=== PATIENT | male | born 1935 | race Caucasian/White ===

== ENCOUNTER → 2018-03-14 | Outpatient (CLI) | payer MEDICARE, BC ==
[~2018-03-14] MED LIST: ALBU90OI INH; Aspir 8181 MG PO; BETA.25.45 OU; BRIM.15SO OU; DIGO.125 PO; DILT120 PO; DOCU100 PO; DORZOPSO; DULERA 100 MCG/13 GM INH; FURO40 PO; METO50ER PO; POTA10T PO; TRAV.004OP OU
== END | disposition home or self-care (01) ==
LOC: LAB SHORT 07:50 → PLD 07:50
DX: C44.42 Squamous cell carcinoma of skin of scalp and neck (principal); D04.4 Carcinoma in situ of skin of scalp and neck
CPT/HCPCS: 88305

== ENCOUNTER 2018-10-19 06:04 | Emergency (ER) | payer MEDICARE, BC ==
[~2018-10-19] VITALS: Ht 167.6 cm; Wt 97.5 kg
[2018-10-19] MEDS ORDERED: Ultram50 MG PO (07:43)
== END 2018-10-19 08:00 | disposition home or self-care (01) ==
LOC: ER 06:04
DX: S39.012A Strain of muscle, fascia and tendon of lower back, initial encounter (principal); W18.30XA Fall on same level, unspecified, initial encounter; J44.9 Chronic obstructive pulmonary disease, unspecified; I48.91 Unspecified atrial fibrillation; Z87.891 Personal history of nicotine dependence
CPT/HCPCS: 72100; 99283-25

== ENCOUNTER → 2021-01-01 | Outpatient (CLI) | payer MEDICARE, BC ==
[~2021-01-01] MED LIST changes: +Ultram50 MG PO
== END ==
LOC: LAB SHORT 12:04 → LAB 12:04
DX: D48.5 Neoplasm of uncertain behavior of skin (principal); Q82.5 Congenital non-neoplastic nevus; D22.5 Melanocytic nevi of trunk; Z88.0 Allergy status to penicillin; Z88.1 Allergy status to other antibiotic agents; Z88.8 Allergy status to other drugs, medicaments and biological substances; Z91.038 Other insect allergy status
CPT/HCPCS: 88305

== ENCOUNTER 2022-01-12 22:45 | Inpatient (IN) | payer MEDICARE, BC ==
[~2022-01-12] VITALS: Ht 165.1 cm; Wt 91.0 kg
[2022-01-13 04:28] LABS: BASOPHILS ABSOLUTE AUTO 0.01 K/mm3 (0.00-0.23); BASOPHILS PERCENT AUTO 0 % (0-2); EOSINOPHILS ABSOLUTE AUTO 0.01 K/mm3 (0.00-0.68); EOSINOPHILS PERCENT AUTO 0 % (0-6); Hematocrit 44.9 % (37.0-53.0); Hemoglobin 15.6 g/dL (13.5-17.5); IMMATURE GRAN PERCENT AUTO 1 % (0-1); LYMPHOCYTES ABSOLUTE AUTO 1.42 K/mm3 (0.84-5.20); LYMPHOCYTES PERCENT AUTO 14 % (21-46); MONOCYTES ABSOLUTE AUTO 1.07 K/mm3 (0.16-1.47); MONOCYTES PERCENT AUTO 10 % (4-13); Mean Corpuscular HGB 30.6 pg (26.0-34.0); Mean Corpuscular HGB Conc 34.7 g/dL (31.5-36.5); Mean Corpuscular Volume 88 fL (80-100); Mean Platelet Volume 9.1 fL (9.1-12.4); NEUTROPHILS ABSOLUTE AUTO 7.86 K/mm3 (1.96-9.15); NEUTROPHILS PERCENT AUTO 75 % (41-73); Platelet Count 204 K/mm3 (150-400); RDW Coefficient Variation 12.2 % (11.7-14.2); RDW Standard Deviation 39.5 fL (35.1-46.3); Red Blood Cell Count 5.09 M/mm3 (4.30-5.90); White Blood Cell Count 10.47 K/mm3 (4.00-11.30)
[2022-01-13 04:48] LABS: Calcium, Blood 7.6 mg/dL (8.5-10.1); Creatinine, Blood 0.27 mg/dL (0.60-1.20); Potassium, Blood 3.9 mmol/L (3.5-5.5)
[2022-01-13] MEDS ORDERED: Norco 5-325 Ta1 EACH PO (05:49)
--- NOTE | 2022-01-13 12:50 | NUR ---
Pt states that he fell at home after he tripped. He says that he lives with his and son. Son lives in a trailer on their property in [place]. The pt states he is starting to see why older folks usually move into town. He says it is getting to be too much for he and his to live out in the country. States that there is risk of wildfires in the summer and too much work in the winter.
[2022-01-13 13:19] LABS: Influenza A, PCR NEGATIVE (NEGATIVE); Influenza B, PCR NEGATIVE (NEGATIVE); Resp Syncytial Virus, PCR NEGATIVE (NEGATIVE)
[2022-01-13 13:23] LABS: SARS-Cov-2 (COVID-19) PCR, MMC POSITIVE (NEGATIVE)
--- NOTE | 2022-01-13 13:30 | NUR ---
Pt's called to talk with the patient. I asked her if the pt is normally confused/forgetful at home, and she said that that is normal for him. She said that they have not been tested for Covid, but have been ill at home, and she presumed that it was covid. Both she and her have been ill, she said. I asked her to review the pt's medications with me over the phone, but she said that she did not have the list in front of her and could not do it at the time, but that she would call back later to review it with me.
--- NOTE | 2022-01-13 14:15 | NUR ---
Coughing up yellow thick sputum. Call to provider Mika to report positive covid results, and clarify continuous IVF order. the pt was not requiring oxygen after the initial settling in to PCU room 17; however, at this time spo2 is 87-88% on room air, even after the pt was deep breathing and coughing. He is in no distress. Given 3 l/min of oxygen gradually starting at 1 l/min and his spo2 improved to 90%.
--- NOTE | 2022-01-13 16:01 | NUR ---
Pt had pulled off his oxygen, his pulse oximetry, cardiac cath lab manager wires and pulled out his IV. He is redirectable, but forgets quickly where he is and what things are around him. His spoke with me on the phone and says that he normally is confused and very forgetful. Powerglide placed right upper arm without difficulty. Pt is cooperative and pleasantly conversant; however, conversation is difficult due to his hearing loss and he says that his hearing aid batteries need replacing. He also has some vision loss he states, and this is evident also in conversation with him. He mistook the Geriwalker for a rocking chair. Bed alarm is on. NS infusing now via powerglide midline IV. The pt is on 3 l/min of oxygen and spo2 92-96%. He is napping when not involved in conversation or during patient care.
[2022-01-13 17:09] LABS: Hematocrit 45.1 % (37.0-53.0); Hemoglobin 16.2 g/dL (13.5-17.5)
--- NOTE | 2022-01-13 17:25 | NUR ---
Pt has had several attempts to void but has been unsuccessful. Voided only miniscule amounts. Bladder scan showed greater than [address] Gatica to report pt's need for supplemental oxygen as well as bladder scan results. New order received.
--- NOTE | 2022-01-13 17:29 | NUR ---
sling placed on the right arm for comfort per Dr. Campbell.
--- NOTE | 2022-01-13 17:45 | NUR ---
Assisted the pt to sit up in bed to eat dinner. Earlier attempts to help him to stand to use the urinal were not successful as he was too weak to stand, and additionally his right arm is immobilized in sling due to the fracture.
[2022-01-13 17:51] LABS: Source, Urine Foley catheter
[2022-01-13 17:55] LABS: Appearance, Urine Clear (Clear); Bilirubin, Urine Neg (Neg); Blood, Urine 1+ (Neg); Color, Urine Yellow (P-Yellow); Glucose Qualitative, Urine 2+ (Neg); Ketones, Urine 4+ (Neg); Leukocyte Esterase, Urine Neg (Neg); Nitrite, Urine Neg (Neg); Protein, Urine 1+ (Neg); Urobilinogen, Urine 2+ (Normal); pH, Urine 6.5 (5.0-8.0)
--- NOTE | 2022-01-13 18:29 | NUR ---
The pt ate about half of his dinner while sitting up in bed. He is cheerful, pleasant, and redirectable. He has required careful monitoring as he often forgets what items are and pulls his oxygen off of his nose. removes the continuous oxymetry sticker, attempts to pull out his IV, and pulls his hearing aids out. Requested pt room with remote camera montoring for patient safety. Bed alarm is on. Room door has to remain closed due to pt's positive covid status.
--- NOTE | 2022-01-13 18:35 | NUR ---
The pt does not keep the sling in place. He states that he is not having any pain.
[2022-01-13 18:53] LABS: Bacteria Few /hpf; Red Blood Cells, Urine 0-2 /hpf (0-2); Squamous Epithelial Cells Rare /hpf (Few); White Blood Cells, Urine 0-2 /hpf (0-5)
[2022-01-14 04:58] LABS: Hemoglobin 13.5 g/dL (13.5-17.5); Mean Corpuscular HGB 31.1 pg (26.0-34.0); Mean Corpuscular HGB Conc 34.6 g/dL (31.5-36.5); Mean Corpuscular Volume 90 fL (80-100); Mean Platelet Volume 9.1 fL (9.1-12.4); Platelet Count 187 K/mm3 (150-400); RDW Coefficient Variation 12.2 % (11.7-14.2); RDW Standard Deviation 40.2 fL (35.1-46.3); Red Blood Cell Count 4.34 M/mm3 (4.30-5.90); White Blood Cell Count 11.06 K/mm3 (4.00-11.30)
[2022-01-14 05:26] LABS: Calcium, Blood 6.9 mg/dL (8.5-10.1); Creatinine, Blood 0.25 mg/dL (0.60-1.20); Potassium, Blood 2.7 mmol/L (3.5-5.5)
--- NOTE | 2022-01-14 05:52 | NUR ---
SHIFT SUMMARY PT ALERT. CONFUSED, FORGETFUL, AND HARD OF HEARING. STATES HE OCCASIONALLY SEES HALLUCINATIONS. NO TELE. AFEBRILE. BP STABLE. ON 4L SATS OVER 90%. SPENT HALF OF EVENING IN BED, AWAKE AND RESTLESS. REST OF NIGHT IN CHAIR SLEEPING. LUNG SOUNDS MOIST. CEDILLO IN PLACE DRAINING YELLOW URINE TO GRAVITY. CALL ALARM AT SIDE, WILL CONTINUE TO MONITOR UNTIL REPORT GIVEN TO DAYSHIFT RN
--- NOTE | 2022-01-14 07:16 | NUR ---
Call to Dr. Ramos regarding the low potassium level noted on labs this morning. States that he will order some replacement.
--- NOTE | 2022-01-14 08:00 | NUR ---
Pt is confused. Does not know where he is. Oriented to person, and following directions, but his conversation is more confused than yesterday. He awakens for oral medications and some breakfast, but requires frequent cues, and is having difficulty staying awake when not engaged in conversation or activity. Was wearing oxygen at 4 l/min with spo2 96% while sleeping; This was decreased to 2 l/min, but with activity of eating and taking meds spo2 dropped to 85% on this. He is now at 3 l/min and maintaining 88-90% spo2 while eating. He is sitting up in the recliner, leaning to the left. Complained of his back hurting, but denies any pain in the right shoulder/clavicular area at this time. Bruising noted advanced since yesterday evening, but no increase in the swelling nor size of the hematoma.
--- NOTE | 2022-01-14 08:59 | NUR ---
Pt was assisted up to bedside commode to have BM. He is a 2 person moderate assist with gait belt and geriwalker. Still having some confusion, but he is directable and able to track with some ongoing activity. Required 4 l/min of oxygen for the activity, reduced back down to 3 l/min afterwards when at rest. Denture care completed, but he did not want the upper dentures back in his mouth. Lower teeth are his own, he says. Sitting in recliner chair. Contreras draining clear yellow urine. IV NS infusing concurrently with KCL rider at this time, into powerglide in the right upper arm.
--- NOTE | 2022-01-14 09:38 | NUR ---
NS and KCL first rider still infusing, concurrently. Pt is dozing in the recliner chair. RT Stanley Fu reports to me that the pt was unable to follow directions to administer the inhaler scheduled this morning. STates it appears that either the pt is unfamiliar with the method, or more confused than usual and unable to use it in an effective way.
--- NOTE | 2022-01-14 10:05 | NUR ---
Assisted pt to BSC and then to bed. He says that he is exhausted. Dr. Ramos rounded on the pt during the transfer to bed. Pt is on 3 l/min of oxygen, spo2 90-91% at this time.
--- NOTE | 2022-01-14 13:09 | NUR ---
Pt is napping in between care. He often pulls at lines/tubes. Prevented from pulling out his Midline IV catheter by TROLLEY CAR OPERATOR intervention about an hour ago. Able to wean his oxygen down to 1 l/min delivery; he is sleeping now on his left side. Frequent moist, productive cough with yellow sputum. Line draw at this time from the Midline IV. Declined eating lunch; states that he just wants to sleep. Attempted to call family at phone number listed for and son; no answer, and no voice mail available.
[2022-01-14] MEDS ORDERED: TIMO.5OPSO BOTHEYES (14:53)
--- NOTE | 2022-01-14 15:25 | NUR ---
Assisted to bedside commode, said that he had to have a BM. Unable to have a BM, passing gas. STates he takes prune juice. Miralax and senokot are being given as ordered, and we will also give him some prune juice. Assisted to the recliner chair for dinner. His son Godwin was here visiting the last hour, brought the pt's hearing aid batteries and glasses. I updated the family on the pt's condition and plan of care.
[2022-01-14] MEDS ORDERED: TRAVOPROST2.5 ML BOTHEYES (16:07)
--- NOTE | 2022-01-14 17:46 | NUR ---
The pt said that he had had a BM. He asked if this was the chair with the hole in the middle (BSC). It was not. Pt assisted with gait belt to stand up and hold on to geriwalker while pericare was done and clean attends placed on the pt. Meal set up was then done and pt is continuing to sit in the recliner to eat dinner.
[2022-01-15 04:39] LABS: Bun/Creatinine Ratio 12.1 (12.0-20.0); Calcium, Blood 8.3 mg/dL (8.5-10.1); Creatinine, Blood 0.33 mg/dL (0.60-1.20); Magnesium, Blood 1.8 mg/dL (1.6-2.4)
--- NOTE | 2022-01-15 06:02 | NUR ---
SHIFT SUMMARY PT ALERT. MENTATION CHANGES THROUGHOUT THE NIGHT, MORE CONFUSED WHEN WAKING UP FROM SLEEP.AFEBRILE. HR SR 80'S. ON 1-3L NC SATS OVER 89%. BP STABLE. IN CHAIR MOST OF EVENING. CEDILLO IN PLACE DRAINING TO GRAVITY. NO C/O PAIN OR DISCOMFORT. NS INFUSING IN MONSTER PG. PG DRAWS BLOOD. IN AND OUT OF SLEEP THROUGHOUT THE EVENING. IN CHAIR WITH CALL ALARM AT SIDE, WILL CONTINUE TO MONITOR UNTIL REPORT GIVEN TO DAYSHIFT RN
--- NOTE | 2022-01-15 08:17 | NUR ---
Pt is alert, oriented to person, place, family, and ongoing events. He is able to recall events from last night, his admission, and is talking about having conversation with his son and to possibly sell their property and move into town, as he is realizing that it is too much for them to keep up. He is eating breakfast. Leaning to the left side, because he says that he is having pain from his right hip and lower back. States chronic. Declined pain medication, states that it gives him hallucinations.
--- NOTE | 2022-01-15 08:46 | NUR ---
Pt was given warm damp cloth to wash his face and hands. Upper dentures were cleaned for him. Combed his hair. He says that he is done with breakfast, but might need to poop a little bit later. Call light attached to his table within reachTerrell Tolbert with physical therapy here to see the patient.
--- NOTE | 2022-01-15 10:27 | NUR ---
The pt has been oriented, and appropriate in conversation, recalling ongling events and making personal plans, and communicating about them with staff. Using call light appropriately. No drowsiness noted. He asked me to call his . He talked to her earlier on the phone, and she asked him to call his eye doctor. He tells me that he forgot to tell her that he isn't really set up here to call the eye doctor and as it isn't urgent, he would like his to call the eye doctor. PT requested assistance up to the bedside commode at this time. Oxygen delivery increased to 4 l/min during the activity; he was able to stand, stooped over on the geriwalker, and transfer to the commode. Call light in reach; he said that he will call when he is done.
--- NOTE | 2022-01-15 11:07 | NUR ---
Assist from commode back to recliner chair. States unable to have a BM.
--- NOTE | 2022-01-15 13:56 | NUR ---
Repositioned the pt slightly in the recliner chair. He does not want to get into the bed. Wearing 1 l/min of oxygen, spO2 91-93%. Says that he has no other needs at this time.
--- NOTE | 2022-01-15 17:33 | NUR ---
Following report given by telephone to DOMINGO Carrasco, the pt was transferred to room 346 by recliner chair. The pt is on continuous oximetry monitoring and wearing 1 l/min of oxygen delivery by nasal cannula.
--- NOTE | 2022-01-15 17:53 | NUR ---
PATIENT IS EATING DINNER AT THIS TIME. UP IN THE RECLINER. ON 1L O2 VIA NC WITH O2 SATURATION OF 93%. REPOSITIONED WITH PILLOWS. WILL CONTINUE TO MONITOR
--- NOTE | 2022-01-16 05:40 | NUR ---
SHIFT SUMMARY AOX4-SELF, PLACE, FOLLOWING DIRECTIONS, SITUATION @BEGINNING OF SHIFT. [place]. THIS AM PT MORE DROWSY & CONFUSED. ASKS "WHERE ARE WE? WHAT STATE ARE WE IN? WHAT ARE YOU DOING HERE?" AND REMOVED NC TUBE OFF MULTIPLE TIMES. DENIES ANY PAIN @ R CLAVICLE FX. COVID +. 2-4L O2 VIA NC DEPENDING ON EXERTION, PT CURRENTLY ON 3L O2 SINCE PT KEPT DESATING TO 80% R/T PULLING NC OFF. OCC NONPRODUCTIVE COUGH. LS DIM T/O. LABOURED BREATHING c ACTIVITY. OTHERWISE VSS. 2 ASSIST c FWW & GB, DAMARIS/LEANS FORWARD c TRANSFERS. CEDILLO PATENT & DRAINING DARK ORANGE URINE. CALL LIGHT & BED ALARM IN PLACE.
[2022-01-16 05:52] LABS: Bun/Creatinine Ratio 16.1 (12.0-20.0); Calcium, Blood 8.5 mg/dL (8.5-10.1); Creatinine, Blood 0.31 mg/dL (0.60-1.20); Potassium, Blood 3.7 mmol/L (3.5-5.5)
--- NOTE | 2022-01-16 17:20 | NUR ---
PATIENT IS ALERT AND ORIENTED SELF, FAMILY AND PLACE. CONFUSED WHEN AWAKENED FROM SLEEP. HE HAS BEEN UP IN THE RECLINER MOST OF THIS SHIFT. ON 5L O2 VIA NC AT THIS TIME WITH AND OXYGEN SATURATION OF 93%. PATIENT DOES PULL OFF HIS OXYGEN WHILE ASLEEP. UPDATE GIVEN TO THE PATIENT'S . PATIENT WAS ABLE TO TALK TO HIS OVER THE PHONE. NO C/O PAIN. PATIENT SHOWERED WITH ASSISTANCE THIS MORNING
--- NOTE | 2022-01-17 05:27 | NUR ---
SHIFT SUMMARY NO ACUTE CHANGE THIS SHIFT. MORE ORIENTED THEN PREVIOUS NIGHT. AOX3-4, MAYBE A LITTLE FORGETFUL. ABLE TO FOLLOW DIRECTIONS. VSS. DENIES PAIN, N/V. REPORTS FEELING DYSPNIC. COVID +. ABLE TO TITRATE O2 DOWN TO 2.5L O2. LS DIM & COARSE T/O. E/U RESP. CALL LIGHT IN REACH & BED ALARM IN PLACE. WILL MONITOR.
[2022-01-17 06:01] LABS: Bun/Creatinine Ratio 22.3 (12.0-20.0); Calcium, Blood 8.6 mg/dL (8.5-10.1); Creatinine, Blood 0.31 mg/dL (0.60-1.20); Potassium, Blood 3.9 mmol/L (3.5-5.5)
--- NOTE | 2022-01-17 18:15 | NUR ---
PATIENT PAM CONTINUES TO DESAT DURING ANY ACTIVITY, EVEN TALKING ON THE PHONE. HE IS AT 3 LNC. PATIENT APPEARS TO BE ALERT, BUT QUICKLY DOSES OFF WITH EYES HALF OPEN. HIS LUNGS SOUND CONGESTED. APPETITE DECREASED. LABS ARE OFF A LITTLE, WITH LOW SODUIM, CHLORIDE, BUN, CREATININE. PATIENT HAD COMPANY TODAY, AND FAMILY WERE HERE. THIS AFTERNOON, URINE APPEARED STRAWBERRY IN THE CEDILLO FOR A BRIEF TIME, WE ARE OBSERVING THIS STILL AT THIS POINT TO SEE WHAT MAY OCCUR.
--- NOTE | 2022-01-18 05:09 | NUR ---
SHIFT SUMMARY AOX1-SELF & FOLLOWING DIRECTIONS. APPEARED MORE CONFUSED THEN PREVIOUS NIGHT, REPORTED HE WAS IN "[place]" AND ASKED WHO I WAS. REPORTED 4/10 PAIN IN R SHOULDER, MEDICATED 1X c TYLENOL. DENIES N/V. REPORTS FEELING DYSPNIC. SPO2 >90% ON 4L O2, PT FREQUENTLY REMOVES NC & DESATS TO 84-88% ON RA. REST OF VSS. LS DIM c CRACKLES IN BASES. E/U RESP. CEDILLO DRAINING BRIGHT ORANGE URINE. CALL LIGHT & BED ALARM IN PLACE FOR SAFETY.
[2022-01-18 09:50] LABS: Bun/Creatinine Ratio 30.9 (12.0-20.0); Calcium, Blood 8.9 mg/dL (8.5-10.1); Creatinine, Blood 0.29 mg/dL (0.60-1.20); Potassium, Blood 3.8 mmol/L (3.5-5.5)
--- NOTE | 2022-01-18 16:56 | NUR ---
SHIFT SUMMARY PT AxOx2-3. PLEASANT AND COOPERATIVE WITH CARE. PT WORKED WITH PHYSICAL THERAPY THIS SHIFT. UP IN CHAIR FOR APPROX 4 HOURS TODAY. PT DENIES DYSPNEA OR PAIN. PT BREATHING WITHOUT DIFFICULTY ON 3L O2 VIA NC. PT DESATS BELOW 88% WITH ACTIVITY OR ACCIDENTAL REMOVAL OF O2. PT HAS POOR APPETITE THIS SHIFT. VITALS REVIEWED. PT CURRENTLY RESTING IN BED WITH CALL LIGHT IN REACH.
--- NOTE | 2022-01-19 01:30 | NUR ---
INCREASED O2 NEEDS SINCE BEGINNING OF SHIFT PT HAS BEEN VERY CONFUSED, AOX1-SELF, REMOVING NC WHICH HAS CAUSED SPO2 TO DROP TO 80-88% ON RA. FREQUENTLY IN ROOM REPLACING NC BACK ON PT OR REPLACING CONT BIOX SENSOR. PT SATS WERE RECOOPERATING FINE ON 5L O2 UNTIL ROUGHLY 0030 WHEN SPO2 MAINTAINED 68-72% ON 5L O2. CALLED RT FOR HF NC. PT NOW SATING 90-94% ON 8L O2 HF NC & TURNED 1/2 ON SIDE & ABD, MOSTLY PRONED. HIS BREATH SOUNDS ARE COARSE T/O AND PT HAS WET GURGLY SOUND IN BACK OF THROAT, ENCOURAGED PT TO COUGH. VERY WEAK COUGH, NO SPUTUM PRODUCTION. WILL CONT TO MONITOR.
[2022-01-19 05:50] LABS: Bun/Creatinine Ratio 29.7 (12.0-20.0); Calcium, Blood 9.1 mg/dL (8.5-10.1); Creatinine, Blood 0.3 mg/dL (0.60-1.20)
--- NOTE | 2022-01-19 06:30 | NUR ---
SHIFT SUMMARY PT HAS BEEN CONFUSED T/O NIGHT, AOX1-SELF ONLY. HAS STARTED SPEAKING NONSENSICAL & HAVING NONSENSICAL RESPONSES TO QUESTIONS. UNABLE TO FOLLOW DIRECTIONS WELL. FREQUENTLY PULLING OFF NC & CONT PULSE OX. PT IS REQUIRING MORE O2 TO MAINTAIN SPO2, CURRENTLY ON 6L HF NC HAS REQUIRED UP TO 8L HF O2 TONIGHT. AROUND 0600 THIS AM CONT PULSE OX STATES HR 130-146, INFORMED DR MCDOWELL, SHE PLACED PT ON TELE. TELE REPORTED AFIB HR SUSTAINING 130-140'S. CALLED DR MCDOWELL BACK & INFORMED HER OF THE CHANGES PT HAS HAD OVER THE COURSE OF 4 DAYS MIAH PROVIDED CARE TO HIM & SHE ORDERED IV METOPROLOL & CHEST XRAY. BP STABLE. AFEBRILE. CEDILLO PATENT & DRAINING ORANGE URINE. WILL CONT TO MONITOR PT UNTIL DAY NURSE ASSUMES CARE.
[2022-01-19 07:05] LABS: Base Excess Venous 8.2 mmol/L; Bicarbonate Venous 29.3 mmol/L (24.0-30.0); PCO2 Venous 54.9 mmHg (38-42); pH Blood Venous 7.39 (7.34-7.37)
[2022-01-19 12:05] LABS: Hematocrit 44.1 % (37.0-53.0); Hemoglobin 15.3 g/dL (13.5-17.5); Mean Corpuscular HGB 31.2 pg (26.0-34.0); Mean Corpuscular HGB Conc 34.7 g/dL (31.5-36.5); Mean Corpuscular Volume 90 fL (80-100); Mean Platelet Volume 9.1 fL (9.1-12.4); Platelet Count 402 K/mm3 (150-400); RDW Coefficient Variation 11.9 % (11.7-14.2); RDW Standard Deviation 39.5 fL (35.1-46.3); White Blood Cell Count 20.06 K/mm3 (4.00-11.30)
--- NOTE | 2022-01-19 14:35 | NUR ---
SPOKE TO DR RE INC H/R, BRUISING, LOWER SATS. 5-8L O2, LOC, MOBILITY, LUNGS WET COARSE. DR ORDERING LABS, XRAY, ECHO, SPOKE TO FAMILY RE CODE STATUS. THEY STILL FEEL NEED FULL CODE.
--- NOTE | 2022-01-19 17:32 | NUR ---
Met with pt, his and son at the bedside. Assisted pt with repositioning in recliner chair. He appears winded, tired, slumping down in the chair. Once repositioned, he appears more relaxed and perfusing better. He is alert, but oriented to self only at this time. He is asking questions that are mostly non-sensical. As requested by bedside RN, I spoke to pt's and son about pt's code status. His code status is Full Code. Pt's was clear she intends for pt's code status to remain unchanged. She quickly stated, "Yes, Full Code". and then "No, I don't have any questions, thank you" when I attempted to follow up. Palliative Care will remain available.
--- NOTE | 2022-01-19 18:08 | NUR ---
PT HAS AWAKENED SOME T/O DAY. SOME IMPROVEMENT. DR INCREASED METOPROLOL THIS AM. H/R DOWN FROM THIS AM AT 130'S TO THIS AFT. 105-114, O2 REMAINS AT 5L. PT CONDITION DISCUSSED WITH THIS AM. CHEST XRAY AND ECHO DONE TODAY. TWO NEW ANTIBIOTICS STARTED TODAY. PT DID EAT SOME THIS NOON AND STAN. IS AWAKE MORE. BED IN LOW POSITION, CALL LITE IN REACH BED ALARM ON FOR SAFETY
--- NOTE | 2022-01-20 05:09 | NUR ---
SHIFT SUMMARY AOX2-SELF, HOSPITAL. UNAWARE SITUATION, DATE, TOWN, STATES HE'S IN "A HOSPITAL IN [place]." MENTATION WAXES/WANES. AT ONE POINT PT TOLD THIS NURSE "I HAVE TO FINISH MAILING ALL THESE LETTERS," MEANWHILE HE WAS LICKING HIS BED SHEETS LIKE THEY WERE AN ENVELOPE. HAVING VISUAL HALLUCINATIONS. HOWEVER PT COULD REMEMBER MY NAME. HR STABLE TONIGHT. TELE AFIB c BBB HR 110. SPO2 DROPS WHEN PT REMOVES NC, 68-78% ON RA. PT HAVING MORE DIFFICULTY RECOOPERATING AFTER REMOVING NC TONIGHT COMPARED TO PREVIOUS NIGHT, NEEDS MORE O2 & LONGER TIME TO GET SPO2 >90%. CURRENTLY PT ON 8L HF NC & SPO2 94%. LS DIM & COARSE T/O. HAS WET WEAK COUGH. CEDLILO PATENT & DRAINING ORANGE URINE. REPORTED BACK PAIN, MEDICATED 1X c TYLENOL & NO FURTHER DISCOMFORT REPORTED. AWAITING PLACEMENT. CALL LIGHT & BED ALARM IN PLACE, WILL MONITOR.
[2022-01-20 06:45] LABS: Bun/Creatinine Ratio 35.6 (12.0-20.0); Calcium, Blood 8.4 mg/dL (8.5-10.1); Creatinine, Blood 0.31 mg/dL (0.60-1.20); Potassium, Blood 4.2 mmol/L (3.5-5.5)
--- NOTE | 2022-01-20 17:27 | NUR ---
SHIFT SUMMARY PT IS A/O X2 AND PLEASANT. SOMETIMES HE PULLS ON O2 CORDS WHICH CAUSES HIM TO DESAT INTO THE LOW 80'S. PT'S O2 HAS BEEN INCREASED TO 10-11 LITERS HIGH FLOW IN ORDER TO KEEP HIM FROM DESATTING. NON-REBREATHER IN ROOM TO HELP PT RECOVER WHEN HE DESATS. PT IS SLIGHTLY CONFUSED AND FATIGUED. HOWEVER, HE WAS ABLE TO GET UP TO THE CHAIR WITH PHYSICAL THERAPY. VSS.
[2022-01-21 05:35] LABS: Hematocrit 42.5 % (37.0-53.0); Hemoglobin 14.9 g/dL (13.5-17.5); Mean Corpuscular HGB 31.6 pg (26.0-34.0); Mean Corpuscular HGB Conc 35.1 g/dL (31.5-36.5); Mean Corpuscular Volume 90 fL (80-100); Mean Platelet Volume 8.6 fL (9.1-12.4); Platelet Count 422 K/mm3 (150-400); RDW Coefficient Variation 11.9 % (11.7-14.2); RDW Standard Deviation 39.5 fL (35.1-46.3); Red Blood Cell Count 4.72 M/mm3 (4.30-5.90); White Blood Cell Count 18.14 K/mm3 (4.00-11.30)
[2022-01-21 05:48] LABS: Creatinine, Blood 0.28 mg/dL (0.60-1.20); Potassium, Blood 4.8 mmol/L (3.5-5.5)
--- NOTE | 2022-01-21 09:28 | NUR ---
Spoke to pt's Umang by phone this morning and gave her an update on pt's status. She is aware his condition is worsening and knows he's transferring to ICU. We talked about pt's code status again, specifically regarding the likelihood of intubation. Umang was tearful, but states she has changed her mind and would like pt's code status changed to DNR. She also states she is leaning towards "making him comfortable", but she would like to see him, and she is open to having that discussion after.
--- NOTE | 2022-01-21 11:19 | NUR ---
PT ADMITTED TO ICU AT 1100 FROM MED FLOOR FOR RESP DISTRESS. PT AWAKE, RESTLESS, AND CONFUSED. ORIENTED TO NAME ONLY, ABLE TO REDIRECT PT, PICKS AT LINES, AND PULLS O2 OFF. SOME CONVERSATION NONSENSICAL. PT THINKS HE IS IN [place]. PT ARRIVED ON 15L NRB, SWITCHED TO AIRVO 60L/72% FIO2. PT IS NOT MOVING MUCH AIR. NO LUNG SOUNDS TO LLL, FAINT CRACKLES TO RIGHT. BP STABLE. 1200CC YELLOW URINE EMPTIED FROM CEDILLO. PICTURES TAKEN OF EXTENSIVE BRUISING TO CHEST. HEMATOMA/SWELLING NOTED ABOVE RIGHT CLAVICAL. PT'S AND SON AT BEDSIDE NOW.
--- NOTE | 2022-01-21 11:28 | NUR ---
DUE TO INCREASED O2 NEEDS PT TRANSFERRED TO ICU 5. REPORT GIVEN TO SERVICES CLERK AND PT TRANSFERRED.
--- NOTE | 2022-01-21 11:36 | NUR ---
PT'S REQUEST THAT WE MAKE PT COMFORTABLE, DOES NOT WANT TO ESCALATE CARE. DR RICKS NOTIFIED, WILL COME SPEAK WITH FAMILY.
--- NOTE | 2022-01-21 13:41 | NUR ---
DR RICKS SPOKE WITH FAMILY, PT DNR/DNI. WILL CONTINUE CARE BUT WILL NOT ESCALATE CARE. IF PT BECOMES WORSE THEY WILL TRANSITION TO COMFORT CARE. TORADOL GIVEN FOR RIGHT CLAVICAL FX PAIN. PT REMAINS CONFUSED AND RESTLESS. NS AT 75CC/HR TO START.
--- NOTE | 2022-01-21 17:33 | NUR ---
PT WOKE UP FROM NAP EXTREMELY CONFUSED, HALLUCINATING, UNABLE TO REDIRECT. PT PULLED OFF LEADS AND O2. AND SON AT BEDSIDE. SATS DROPPED TO 70%, THEY ARE NOW 91%.
--- NOTE | 2022-01-21 23:39 | NUR ---
ASSUMED PT CARE AT 1915 PT RESTING IN BED. ALERT AND ORIENTED X4, BUT ALSO VERY CONFUSED AND FORGETFUL. PT HAVING HALLUCINATIONS ABOUT BOXES BEING SENT FROM [place]; REORIENTED PT THAT HE WAS IN THE HOSPITAL. PT HAS SIGNIFICANT BRUISING NOTED T/O NECK/THORACIC/BACK AREA. HEMATOMA NOTED TO RIGHT UPPER CHEST; UNCHANGED PER REPORT. MEDICATED WITH TORADOL PER ORDERS. PT HAS A CATHETER THAT IS PATENT AND DRAINING JOSE COLORED URINE TO GRAVITY. PT REQUIRED MEDS TO BE CRUSHED IN APPLESAUCE FOR SAFE SWALLOWING. TOLERATES THIN LIQUIDS, BUT DOES BETTER WITHOUT A STRAW TO PREVENT CHOKING/ASPIRATION. NS INFUSING AT 75MLS/HR VIA POWERGLIDE TO RIGHT UPPER ARM. AIRVO AT 60L AND FIO2 69%, SPO2 >90%. PT VERY RESTLESS IN BED AND NOT ABLE TO SLEEP; CALLED DR. MOULTON AND RECEIVED ORDERS FOR 5MG OF MELATONIN. CALL LIGHT WITHIN REACH, BUT PT UNABLE TO DEMONSTRATE APPROPRIATE USE. WILL CONTINUE TO MONITOR. SEE SHIFT ASSESSMENT FOR FURTHER DETAILS.
--- NOTE | 2022-01-22 02:13 | NUR ---
PT PLACED IN RESTRAINTS D/T PULLING AT LINES/TUBES AND IV'S. PT IS ALERT TO SELF AT THIS TIME AND VERY CONFUSED/AGITATED. PT REDIRECTED AND REORIENTED WITH MINIMAL EFFECT. LEFT A LITTLE BIT OF LIGHT ON IN ROOM, WHICH APPEARS TO BE EFFECTIVE. ATTEMPTED TO REMOVE RESTRAINTS X1; HOWEVER, PT TORE OFF SPO2 PROBE AND STARTED CHEWING ON IT
[2022-01-22 05:08] LABS: Bun/Creatinine Ratio 47.3 (12.0-20.0); Calcium, Blood 8.7 mg/dL (8.5-10.1); Creatinine, Blood 0.34 mg/dL (0.60-1.20); Potassium, Blood 4.1 mmol/L (3.5-5.5)
--- NOTE | 2022-01-22 05:29 | NUR ---
END OF SHIFT SUMMARY PT HAS REMAINED PLEASANTLY CONFUSED THIS SHIFT. ORIENTED TO SELF ONLY. KEEPS ASKING WHERE HIS IS, WELL ASKING IF HE IS IN [place]. PT CONTINUES TO HALLUCINATE SEEING DOGS, AND PACKAGES IN ROOM. PT REMAINS IN RESTRAINTS D/T PULLING OFF TELE LEADS, WELL PULLING AT IV'S. NS REMAINS INFUSING AT 75ML/HR. AIRVO AT 60L, FIO2 68%, SPO2 >90%. CEDILLO CATHETER PATENT AND DRAINING DARK, JOSE COLORED URINE TO GRAVITY; 275CC THIS SHIFT. MEDICATED WITH TORADOL X1 THIS SHIFT; PT DOESN'T APPEAR IN PAIN HE IS NOT HOLLERING OUT AND DOES NOT HAVE ANY FACIAL GRIMACING DURING REPOSITIONING; PT UNABLE TO GIVE A CLEAR ANSWER REGARDING PAIN WHEN ASKED. WILL CONTINUE TO MONITOR UNTIL REPORT IS HANDED OFF TO ONCOMING RN.
--- NOTE | 2022-01-22 09:16 | NUR ---
CARE OF PT ASSUMED AT 0700. PT WOKE UP FROM SLEEP VERY CONFUSED AND DISORIENTED. PULLING AT LINES, LEADS, IV, O2, DESPITE HAVING BILAT WRIST RESTRAINTS. PT REPOSITIONED HIGH FOWLERS, LIGHTS TURNED ON, WINDOW OPENED, TV TURNED ON. PT SLOWLY RE-ORIENTED, CALM, AND COOPERATIVE. PT REMAINS CONFUSED BUT IS LEAVING O2, LEADS, AND LINES IN PLACE. PT FED ABOUT 10% OF BREAKFAST, VERY POOR APPETITE. AIRVO AT 60L/68% FIO2. SATS >90%.
[2022-01-22 09:52] LABS: Vancomycin, Random 6.8 ug/mL
--- NOTE | 2022-01-22 10:17 | NUR ---
PHYSICAL THERAPY WORKED WITH PT, PT OOB TO CHAIR, SATS >95%. VSS
--- NOTE | 2022-01-22 11:31 | NUR ---
PT OOB IN CHAIR. MEMORY IMPROVING, ABLE TO RETAIN NEW INFORMATION. PT WAS HALLUCINATING, PARANOID. THOUGHT THE FBI HAD TAKEN HIM TO THE AIRPORT AND WAS FORCING HIM TO WATCH A VIDEO ALL MORNING LONG. PT OPEN TO THE IDEA THAT, THAT HAD NOT HAPPENED. SATS 95-98% ON 60L/68% AIRVO. PT ABLE TO USE CALL LIGHT. PT'S CALLED PER PT REQUEST. NO ANSWER. DR WEST CALLED AND GIVEN UPDATE, PT NOW PCU STATUS.
--- NOTE | 2022-01-22 12:17 | NUR ---
PT'S AND SON AT BEDSIDE. PT VERY HAPPY TO SEE FAMILY.
--- NOTE | 2022-01-22 15:26 | NUR ---
Pt appears to be improving slightly today, he was up in chair for some time this morning. He is no longer pulling lines or tubes. 02 sats above 95%. Pt's and son are at bedside today, pleased with the positive changes.
--- NOTE | 2022-01-22 15:57 | NUR ---
Met with pt at bedside. His s/o is also present. Pt just returned from having biopsy done. Reports pain is 8/10, but bedside RN will medicate with available percocet. He states his pain is better today than yesterday, when it was a solid 10/10 for several hours. He does report getting some rest today. Palliative Care will continue to follow.
--- NOTE | 2022-01-22 18:02 | NUR ---
PT BEGINNING TO BECOME MORE CONFUSED AGAIN, REMAINS CALM, AND REDIRECTABLE. POOR APPETITE. REQUEST TO STAY UP IN CHAIR, LIKES HAVING HIS FEET DOWN. DOESNT USUALLY GO TO BED UNTIL 2029. SATS 95% + ALL DAY ON AIRVO 60L/68%.
--- NOTE | 2022-01-22 19:53 | NUR ---
ASSUMED CARE FOR PT AT 1915 PT UP IN CHAIR BY BED SLEEPING. VITALS WNL. NO SIGNIFICANT CHANGES TO REPORT AT THIS TIME. WILL CONTINUE TO MONITOR.
[2022-01-23 04:19] LABS: BASOPHILS ABSOLUTE AUTO 0.02 K/mm3 (0.00-0.23); BASOPHILS PERCENT AUTO 0 % (0-2); EOSINOPHILS PERCENT AUTO 0 % (0-6); Hemoglobin 13.7 g/dL (13.5-17.5); IMMATURE GRAN ABSOLUTE AUTO 0.21 K/mm3 (0.00-0.10); IMMATURE GRAN PERCENT AUTO 1 % (0-1); LYMPHOCYTES ABSOLUTE AUTO 0.88 K/mm3 (0.84-5.20); LYMPHOCYTES PERCENT AUTO 6 % (21-46); MONOCYTES ABSOLUTE AUTO 1.41 K/mm3 (0.16-1.47); MONOCYTES PERCENT AUTO 10 % (4-13); Mean Corpuscular HGB 30.9 pg (26.0-34.0); Mean Corpuscular HGB Conc 34.3 g/dL (31.5-36.5); Mean Corpuscular Volume 90 fL (80-100); Mean Platelet Volume 8.4 fL (9.1-12.4); NEUTROPHILS PERCENT AUTO 83 % (41-73); Platelet Count 434 K/mm3 (150-400); RDW Coefficient Variation 11.9 % (11.7-14.2); RDW Standard Deviation 39.4 fL (35.1-46.3); Red Blood Cell Count 4.44 M/mm3 (4.30-5.90); White Blood Cell Count 14.92 K/mm3 (4.00-11.30)
[2022-01-23 04:41] LABS: Bun/Creatinine Ratio 40.3 (12.0-20.0); Calcium, Blood 8.3 mg/dL (8.5-10.1); Creatinine, Blood 0.35 mg/dL (0.60-1.20); Potassium, Blood 4.4 mmol/L (3.5-5.5)
--- NOTE | 2022-01-23 05:33 | NUR ---
END OF SHIFT SUMMARY WRIST RESTRAINTS ADMINISTERED 2200 DUE TO PULLING OF LINES AND LEADS. INCREASED CONFUSION AND HALUCINATIONS APPARENT. PT RESTED EARLY AM FOR A FEW HOURS UNINTERUPTED. ALL VITALS WNL. 1100 CATHETER OUTPUT, MINIMAL PO FLUID INTAKE. NO SIGNIFICANT CHANGES. SEE SHIFT ASSESSMENT FOR FURTHER DETAILS. WILL CONTINUE TO MONITOR UNTIL REPORT TO AM RN. CALL LIGHT WITHIN REACH, BED IN LOW POSITION.
--- NOTE | 2022-01-23 07:12 | NUR ---
ASSUME CARE: I have assumed care of this patient.
--- NOTE | 2022-01-23 18:04 | NUR ---
SHIFT SUMMARY: pt changed from PCU status to medical status today. NEURO: pt alert to self, event, and year. He tells RN that he is in [place] and reports experiencing hallucinations overnight. Pt up in chair for much of day per his preference. CARDIAC: sinus rhythm on monitor with an episode of afib into the 130's prior to administration of metoprolol. RESPIRATORY: titrated down to 45 LMP and FiO2 of 56% on Airvo. Pt with productive cough GI/: no BM today. Contreras patent and drained 1250 mls out. minimal appetite PSYCH/SOCIAL: family to visit at bedside today.
[2022-01-24 04:23] LABS: BASOPHILS ABSOLUTE AUTO 0.03 K/mm3 (0.00-0.23); BASOPHILS PERCENT AUTO 0 % (0-2); EOSINOPHILS PERCENT AUTO 0 % (0-6); Hemoglobin 14.2 g/dL (13.5-17.5); IMMATURE GRAN ABSOLUTE AUTO 0.34 K/mm3 (0.00-0.10); IMMATURE GRAN PERCENT AUTO 2 % (0-1); LYMPHOCYTES ABSOLUTE AUTO 1.12 K/mm3 (0.84-5.20); LYMPHOCYTES PERCENT AUTO 7 % (21-46); MONOCYTES ABSOLUTE AUTO 1.56 K/mm3 (0.16-1.47); MONOCYTES PERCENT AUTO 10 % (4-13); Mean Corpuscular HGB Conc 34.6 g/dL (31.5-36.5); Mean Corpuscular Volume 90 fL (80-100); Mean Platelet Volume 8.4 fL (9.1-12.4); NEUTROPHILS ABSOLUTE AUTO 12.54 K/mm3 (1.96-9.15); NEUTROPHILS PERCENT AUTO 80 % (41-73); Platelet Count 422 K/mm3 (150-400); RDW Coefficient Variation 11.9 % (11.7-14.2); Red Blood Cell Count 4.58 M/mm3 (4.30-5.90); White Blood Cell Count 15.59 K/mm3 (4.00-11.30)
[2022-01-24 04:42] LABS: Bun/Creatinine Ratio 38.6 (12.0-20.0); Calcium, Blood 8.2 mg/dL (8.5-10.1); Creatinine, Blood 0.29 mg/dL (0.60-1.20); Potassium, Blood 4.3 mmol/L (3.5-5.5)
--- NOTE | 2022-01-24 05:28 | NUR ---
SHIFT SUMMERY PT VSS, [id number] ON THE CREDIT CARD INTERVIEWER. HE IS CONFUSED IN SOFT WRIST RESTRAINTS BILATERALLY. CEDILLO CATH INTACT PATENT AND DRAINING YELLOW URINE. HE HAS NOT SLEPT MUCH OVERNIGHT. NO ACUTE EVENTS OVERNIGHT.
--- NOTE | 2022-01-24 07:00 | NUR ---
ASSUME CARE: I have assumed care of this patient.
--- NOTE | 2022-01-24 18:15 | NUR ---
SHIFT SUMMARY: pt to chair for much of day. his oxygen requirements have been steadily increasing. Current Airvo settings 60 L/min at 86% Fi02. Discussion with Dr. Branes this AM regarding BIPAP; Family declines any escalation of care and asks that we keep pt comfortable. Family at bedside for several hours this afternoon. Minimal appetite again today. Current fluid balance -872.
--- NOTE | 2022-01-24 19:30 | NUR ---
PT REPORT RECEIVED, SAFETY CHECK COMPLETED, ASSUMED POT CARE. PT ALERT AND ORIENTED TO SELF TIME AND EVENT BUT NOT TO PLACE. PT IS CALM AND TOLLERATING SWB RESTRAINTS WELL AND IS ON HFNC AT 60L AND 86%FIO2.
[2022-01-25 04:08] LABS: BASOPHILS ABSOLUTE AUTO 0.06 K/mm3 (0.00-0.23); BASOPHILS PERCENT AUTO 0 % (0-2); EOSINOPHILS ABSOLUTE AUTO 0.01 K/mm3 (0.00-0.68); EOSINOPHILS PERCENT AUTO 0 % (0-6); Hematocrit 43.3 % (37.0-53.0); Hemoglobin 15.2 g/dL (13.5-17.5); IMMATURE GRAN ABSOLUTE AUTO 0.56 K/mm3 (0.00-0.10); IMMATURE GRAN PERCENT AUTO 3 % (0-1); LYMPHOCYTES ABSOLUTE AUTO 1.13 K/mm3 (0.84-5.20); LYMPHOCYTES PERCENT AUTO 6 % (21-46); MONOCYTES ABSOLUTE AUTO 2.12 K/mm3 (0.16-1.47); MONOCYTES PERCENT AUTO 10 % (4-13); Mean Corpuscular HGB 30.9 pg (26.0-34.0); Mean Corpuscular HGB Conc 35.1 g/dL (31.5-36.5); Mean Corpuscular Volume 88 fL (80-100); Mean Platelet Volume 8.5 fL (9.1-12.4); NEUTROPHILS ABSOLUTE AUTO 16.69 K/mm3 (1.96-9.15); NEUTROPHILS PERCENT AUTO 81 % (41-73); Platelet Count 434 K/mm3 (150-400); RDW Coefficient Variation 11.8 % (11.7-14.2); RDW Standard Deviation 37.6 fL (35.1-46.3); Red Blood Cell Count 4.92 M/mm3 (4.30-5.90); White Blood Cell Count 20.57 K/mm3 (4.00-11.30)
[2022-01-25 05:56] LABS: Albumin, Blood 2.6 g/dL (3.4-5.0); Albumin/Globulin Ratio 0.7 (0.8-1.8); Bilirubin, Total 0.9 mg/dL (0.1-1.0); Bun/Creatinine Ratio 42.7 (12.0-20.0); Calcium, Blood 8.4 mg/dL (8.5-10.1); Creatinine, Blood 0.33 mg/dL (0.60-1.20); Globulin, Blood 3.5 g/dL (2.2-4.0); Potassium, Blood 4.6 mmol/L (3.5-5.5); Total Protein, Blood 6.1 g/dL (6.4-8.2)
--- NOTE | 2022-01-25 06:28 | NUR ---
SHIFT SUMMARY: LITTLE CHANGE IN OVER ALL PT CONDIDITION OVER NIGHT. PT IS ALERT AND ABLE TO FOLLOW COMMANDS AND IS ORIENTED X3 WITH SHORT TERM MEMORY LOSS AND EPISODES OF CONFUSION. PT IS TOLLERATING SWB RESTRAINTS WELL. BP AND HR STABLE OVER NIGHT BUT FROM ABOUT 0400 ON THE SPO2 HAS BEEN SLIGHTLY DECREASED WITH READINGS OF 87-88% ON 90% FIO2 ON HFNC. BREATH SOUNDS ARE NOW MORE COURSE AND HIS RESPIRATORY PATTERN IS MORE LABORED. RT CONSULTED ABOUT TREATMENT, WILL CONTINUE TO MONITOR. MAMADOU HAD 1050 OUT OVER NIGHT.
--- NOTE | 2022-01-25 07:07 | NUR ---
ASSUME CARE: I have assumed care of this patient.
--- NOTE | 2022-01-25 07:35 | NUR ---
PROVIDER UPDATE: Dr Barnes called to request medication to help manage secretions. Discussed transitioning to comfort care. Dr Barnes states she will call pt's .
--- NOTE | 2022-01-25 11:59 | NUR ---
Met with family outside of Pt's room. Offered therapeutic conversation as family has elected comfort care for Pt. Offered supportive listening and validated concerns. Family expresses appreciation and report no concerns at this time. Pt resting in bed with his eyes closed. Pt appears comfortable with no S/S of distress at this time. Spoke with Primary RN Kaylee and discussed case. Palliative Care will remain available.
--- NOTE | 2022-01-25 14:49 | NUR ---
TOD: Pt TOD called at 1424 by this RN. customer project manager showed asystole, no chest rise, no pulse, and no heart sounds auscultated. PNTB called and pt is not a donor candidate. Dr Barnes called and notified as well as battery recharger. Contreras catheter and power glide removed.
--- NOTE | 2022-01-25 15:21 | NUR ---
Received call from DOMINGO Mike reporting Pt has . Family at bedside. Offered condolences and emotional support as family is tearful. Offered therapeutic and supportive visit. Family exresses appreciation and report no other concerns at this time. Family chooses [facility]. Palliative Care will remain available.
== END 2022-01-25 16:05 | DRG 177 ==
LOC: ER 22:45 → PCU 22:46 → MEDS 01-15 17:15 → ICUE 01-21 09:11 → MEDS 01-21 09:11 → ICUE 01-21 09:41 → MEDS 01-21 09:41 → ICUE 01-21 11:00 → MEDS 01-21 11:00 → ICUE 01-22 11:17 → PCU 01-25 16:05 → ICUE 01-25 16:05
PROVIDERS: Emergency Medicine; Family Medicine; Internal Medicine; Nurse Practitioner Acute Care; Student in an Organized Health Care Education/Training Program; ADMIT Internal Medicine
PROC: 8E0ZXY6 Isolation (ICD-10-PCS; 2022-01-12)
PROC: 5A0945A Assistance with Respiratory Ventilation, 24-96 Consecutive Hours, High Flow/Velocity Cannula (ICD-10-PCS; principal; 2022-01-22)
PROC: 3E0DX3Z Introduction of Anti-inflammatory into Mouth and Pharynx, External Approach (ICD-10-PCS; 2022-01-22)
PROC: 5A09357 Assistance with Respiratory Ventilation, Less than 24 Consecutive Hours, Continuous Positive Airway Pressure (ICD-10-PCS; 2022-01-22)
DX: U07.1 COVID-19 (principal); G92.8 Other toxic encephalopathy; I50.33 Acute on chronic diastolic (congestive) heart failure; J12.82 Pneumonia due to coronavirus disease 2019; J96.01 Acute respiratory failure with hypoxia; E87.1 Hypo-osmolality and hyponatremia; J98.11 Atelectasis; G93.1 Anoxic brain damage, not elsewhere classified; J44.0 Chronic obstructive pulmonary disease with (acute) lower respiratory infection; Z66 Do not resuscitate; Z51.5 Encounter for palliative care; S46.891A Other injury of other muscles, fascia and tendons at shoulder and upper arm level, right arm, initial encounter; I48.91 Unspecified atrial fibrillation; S60.511A Abrasion of right hand, initial encounter; K21.9 Gastro-esophageal reflux disease without esophagitis; S20.212A Contusion of left front wall of thorax, initial encounter; S40.011A Contusion of right shoulder, initial encounter; S10.93XA Contusion of unspecified part of neck, initial encounter; Z96.642 Presence of left artificial hip joint; S09.90XA Unspecified injury of head, initial encounter; E83.51 Hypocalcemia; F03.90 Unspecified dementia, unspecified severity, without behavioral disturbance, psychotic disturbance, mood disturbance, and anxiety; E86.1 Hypovolemia; E87.6 Hypokalemia; Z98.890 Other specified postprocedural states; Z87.891 Personal history of nicotine dependence; Z88.0 Allergy status to penicillin; Z88.8 Allergy status to other drugs, medicaments and biological substances; Z91.030 Bee allergy status; Z88.1 Allergy status to other antibiotic agents; Z79.51 Long term (current) use of inhaled steroids; Z79.899 Other long term (current) drug therapy; W10.8XXA Fall (on) (from) other stairs and steps, initial encounter; Z78.1 Physical restraint status; E86.0 Dehydration; Z96.641 Presence of right artificial hip joint; S42.011A Anterior displaced fracture of sternal end of right clavicle, initial encounter for closed fracture
CPT/HCPCS: 0241U; 51703; 70450; 70491; 71045; 71260; 73000; 73502; 80048; 80053; 80202; 81001; 82803; 83735; 83930; 84132; 84295; 84300; 85014; 85018; 85025; 85027; 93306; 94640; 94664; 94760; 94762; 96361; 96365-59; 97110; 97116; 97162; 97530; 99285-25; A9270; C1751; G0378; J0610; J0696; J1885; J1940; J2060; J2270; J2930; J3370; J3480; J7030; J7040; J7060; Q9967